=== PATIENT | female | born 1985 | race African-American/Black ===

== ENCOUNTER 2021-09-20 19:30 | Outpatient (CLI) | payer MEDICARE | END 2021-09-20 19:31 | disposition home or self-care (01) | LOC: SLEEPLAB 19:30 | PROVIDERS: ATTEND Family Medicine | DX: G47.00 Insomnia, unspecified (principal); R51.9 Headache, unspecified; R53.83 Other fatigue; K21.9 Gastro-esophageal reflux disease without esophagitis; R06.83 Snoring; I10 Essential (primary) hypertension; E11.9 Type 2 diabetes mellitus without complications; E66.9 Obesity, unspecified; G47.9 Sleep disorder, unspecified; J45.909 Unspecified asthma, uncomplicated; G47.10 Hypersomnia, unspecified; Z68.39 Body mass index [BMI] 39.0-39.9, adult | CPT/HCPCS: 95810 ==

== ENCOUNTER 2022-06-08 07:49 | Outpatient (CLI) | payer OTHER | END 2022-06-08 07:50 | disposition home or self-care (01) | LOC: RAD 07:49 | PROVIDERS: ATTEND Family Medicine | DX: K21.9 Gastro-esophageal reflux disease without esophagitis (principal); R14.0 Abdominal distension (gaseous); K59.00 Constipation, unspecified; K44.9 Diaphragmatic hernia without obstruction or gangrene; R13.14 Dysphagia, pharyngoesophageal phase | CPT/HCPCS: 74240 ==

== ENCOUNTER 2024-05-06 10:38 | Outpatient (CLI) | payer MEDICARE | END 2024-05-06 10:39 | disposition home or self-care (01) | LOC: BICULT 10:38 | PROVIDERS: ATTEND Family Medicine | DX: R92.8 Other abnormal and inconclusive findings on diagnostic imaging of breast (principal) ==